=== PATIENT | male | born 1980 | race Caucasian/White ===

== ENCOUNTER 2016-12-22 08:50 | Emergency (ER) | payer OTHER ==
[~2016-12-22] VITALS: Ht 188 cm; Wt 100.4 kg
[~2016-12-22 08:50] MED LIST: NOHOMEMEDS; [UNRECOGNIZED DRUG - REMARK]
[2016-12-22 08:58] VITALS: BP 147/86
== END 2016-12-22 11:30 | disposition home or self-care (01) ==
LOC: EXP 08:50 → EME 08:50 → EXP 11:30
DX: H20.9 Unspecified iridocyclitis (principal)
CPT/HCPCS: 99281; 99283